=== PATIENT | male | born 1950 | race Caucasian/White ===

== ENCOUNTER 2021-06-02 08:22 | Outpatient (CLI) | payer OTHER ==
[2021-06-02 09:16] VITALS: BP 132/68
--- NOTE | 2021-06-02 09:16 | SLEEP CARE CONSULTATION ---
Information from patient questionnaire entered by Jayant Couch MA. I have reviewed and concur with the information entered by Jayant Couch MA. This document represents the service I personally performed and the decisions made by me, Madison Salter ARNP. History of Present Illness Service Date and Time: 06/02/2021 0822 Reason for Visit: New patient Chief Complaint: reports: Snoring, Observed pauses in breathing, Other (gasping noted by ) Date of Onset: long time Usual bedtime: 800- 900 pm Time it takes to fall asleep: 5 minutes Snores at night: Yes Observed to quit breathing while asleep: Yes Sleeps alone due to snoring: No Number of times waking at night: 2 Reasons for waking at night: reports: Snoring, Pain, Bathroom Toss, Turn, or Twitch while sleeping: Yes Recalls having dreams: Yes Usually gets out of bed at: 0500 - 0530 Feels refreshed in the morning: Yes Morning headache: No Sleepy or fatigued during the day: No Ever fallen asleep while driving: No Takes day naps: Yes (4 days a week, 15-20 minutes) Dreams during day naps: No Prior sleep studies: No Additional HPI information: I had the pleasure of seeing RACHNA GONGORA today regarding the possibility of him having a sleep disorder. His current complaints are snoring and observed pauses in breathing. He is going to have knee surgery and his told the surgeon about his snoring and pauses and he was sent here for evaluation. He does feel rested in the morning and has good energy through the day. He will take a nap for 15-20 minutes about 4 days a week. - Parasomnia Symptoms Ever been unable to move upon waking from sleep: No Walks in sleep: No Talks in sleep: Yes (occasionally) Ever acted out dreams in sleep: No Ever felt weak in the knees when startled or emotional: No Bothered by creepy, crawly, restless sensations in legs: No Problems with memory or concentration: No Subjective Initial [place] Sleepiness Scale score: 11 (2020) Past Medical History Past Medical History: reports: Hypertension, Arthritis (knees) Social History The patient's occupation is a RE. Patient is and lives in [place]. Have you smoked in the past 12 months: No Alcohol use: Yes Alcohol amount and frequency: 1 - 3 not much lately Caffeine use: Yes Caffeine amount and frequency: 2-3 x daily Family History Family history of sleep disordered breathing: No Allergies and Home Medications Known drug allergies: No Drug allergies reviewed: Yes (NKDA) Home medication list reviewed: Yes Allergy and home medication list: Amlodipine Besylate 5 mg daily Tamsulosin HCi 0.4 mg daily Losartan Potassium-HCTZ 100-25 mg daily Atorvastatin Calcium 20 mg daily Centrum Silver daily Review of Systems Cardiovascular: reports: high blood pressure Gastrointestinal: denies: heartburn Neurological: denies: headaches Psychiatric: denies: anxiety, depression Ear/Nose/Throat: reports: tonsillectomy, wisdom teeth removed. denies: injury to nose Endocrine: denies: thyroid disease Musculoskeletal: reports: joint pain, other (bad knees) Immunologic: reports: rash. denies: allergies to food or environment Physical Exam Vital signs obtained and entered by: ROMY MAY Blood Pressure: 132/68 (right) Cuff size: wrist Heart Rate: 56 O2 Saturation: 96 (with mask) Height: 6 ft 2 in (info provied by PT) Weight: 252 lb (info provided by PT) Body Mass Index: 32.3 BMI Classification: Obese Neck circumference: 16.75 (inches) Mouth and throat: narrow oropharynx Soft palate: long Hard palate: normal Uvula: normal Uvula visualization: 50% Mallampati Class II Tongue: normal in size Tonsils: absent bilaterally Neck: normal w/o lymphadenopathy or thyromegaly Heart: regular rate and rhythm Impression and Plan 1. Suspected Obstructive Sleep Apnea-Hypopnea Syndrome, as suggested by a history of loud and irregular snoring, observed cessation of breath while asleep, and gasping or choking in sleep. Narrow oropharynx and obesity are common predisposing factors for obstructive sleep apnea-hypopnea syndrome. I recommend proceeding to polysomnography to confirm the diagnosis and to assess severity. If the patient has significant sleep disordered breathing, a manual CPAP titration study will also be performed to find the optimal treatment pressure. I informed the patient of what the sleep studies involve and after some discussion, obtained agreement to proceed. The pathophysiology of obstructive sleep apnea-hypopnea syndrome was discussed with the patient and health risks of cardiovascular and cerebrovascular disease if not treated. AASM brochure for obstructive sleep apnea-hypopnea syndrome given and reviewed. Risks of drowsy driving discussed in detail and patient advised to avoid long distance driving and to hook puller at the first sign of drowsiness. Patient agreed to plan. * Schedule polysomnography +- manual CPAP titration study and return in 1-2 weeks after the study to discuss result and initiate therapy. * Avoid long distance driving or driving when feeling sleepy. * Avoid alcohol, sedative and muscle relaxant around bedtime. * Attempt to lose weight. * Review instructions provided by trained office staff on how to prepare for the sleep study. * Return for follow-up after sleep study completed. Counseling Topics: Weight loss health impact Visit Type: In Office Time Spent with Patient (minutes): 32 Provider Statement: I spent 100% of the Face to Face Visit with the patient with greater than 50% spent counseling the patient and coordination of care.
== END 2021-06-02 08:23 | disposition home or self-care (01) ==
LOC: SC 08:22
PROVIDERS: ATTEND Nurse Practitioner Family
DX: R06.83 Snoring (principal); R06.81 Apnea, not elsewhere classified; G47.8 Other sleep disorders; E66.9 Obesity, unspecified; Z68.32 Body mass index [BMI] 32.0-32.9, adult
CPT/HCPCS: 99203; 99212

== ENCOUNTER 2021-06-26 12:30 | Outpatient (CLI) | payer OTHER | END 2021-06-26 12:31 | disposition home or self-care (01) | LOC: SC 12:30 | PROVIDERS: ATTEND Nurse Practitioner Family | DX: G47.33 Obstructive sleep apnea (adult) (pediatric) (principal); R09.02 Hypoxemia; E66.9 Obesity, unspecified; Z68.32 Body mass index [BMI] 32.0-32.9, adult | CPT/HCPCS: 95806 ==

== ENCOUNTER 2021-07-04 15:23 | Outpatient (CLI) | payer OTHER ==
--- NOTE | 2021-07-04 16:09 | SLEEP CARE CONSULTATION ---
Information from patient questionnaire entered by Jayant Couch MA. I have reviewed and concur with the information entered by Jayant Couch MA. This document represents the service I personally performed and the decisions made by , Madison Salter ARNP. History of Present Illness Service Date and Time: 07/04/2021 1523 Initial [place] Sleepiness Scale score: 11 (2020) Current [place] Sleepiness Scale score: 5 (2021) Additional HPI information: RACHNA GONGORA returns for follow up and results of the recently performed home sleep study. I explained the pathophysiology behind obstructive sleep apnea. We then spent quite a bit of time discussing different treatment options. For mild obstructive sleep apnea, surgery and oral appliance are alternatives to nasal CPAP therapy but in moderate or severe cases, nasal CPAP is the most effective and reliable treatment. I reviewed the impact of weight changes on sleep apnea and strongly recommended losing weight. After some discussion, the patient opted to go with the nasal CPAP therapy. Nasal autoCPAP set at 4-15 cmH20 will be ordered with rationale explained. A manual titration study will be ordered if unable to find optimal pressure with office adjustments. I explained how CPAP machine works and what to expect when using the machine. Using CPAP every night in order to get used to it was emphasized. Patient advised to put CPAP mask on before getting into bed so as not to fall asleep without CPAP. To assist acclimation to CPAP use, it could also be used for a short time during day while reading or watching TV. The patient was instructed to call the CPAP supplier to discuss any mechanical problem that may occur. If the mask given is uncomfortable or is difficult to keep on through the night even with adjustment, contact the CPAP supplier as many will replace with another mask style if notified before 30 days. If snoring or perceives is not getting enough air or too much air from the machine, notify this office. AASM patient education PAP tips reviewed and given to patient. Patient was cautioned about risks of drowsy driving until sleepiness symptoms resolve. Sleep Study - Results Prior sleep studies: No Polysomnography/Home Sleep Study results: Physician Impression: The quality of the study is fair due to partial loss of airflow signal.. The natasha gth of the study is not optimal (< 240 minutes). Please also see the tabulated and graphic data. 1. Obstructive Sleep Apnea-Hypopnea (ICD-10 G47.33), mild, with an AHI of 14.2/hr and jayce SaO2 of 88%. During the study, the patient had 11 apneas (11 obstructive, 0 central, 0 mixed) and 16 hypopneas. The longest episode lasted 118.5 seconds. The respiratory events occurred more frequently during supine sleep (supine AHI was 77.4 and non-supine, 10.55). 2. Hypoxemia (ICD-10 R09.02), minimal, with the lowest oxygen saturation of 88 % and 0.6 minutes with SaO2 under 90%. Baseline oxygen saturation was normal (Average oxygen saturation was 93%). Allergies and Home Medications Known drug allergies: No Drug allergies reviewed: Yes Home medication list reviewed: Yes (no changes) Review of Systems Review of systems same as previous: Yes (no changes) Physical Exam Vital signs obtained and entered by: ROMY MAY Blood Pressure: 133/88 (LEFT) Cuff size: wrist Heart Rate: 83 O2 Saturation: 97 (WITH N95 MASK) Height: 6 ft 2 in (info provied by PT) Weight: 248 lb (WITH CLOTHES) Body Mass Index: 31.8 BMI Classification: Obese Impression and Plan 1. Obstructive Sleep Apnea-Hypopnea Syndrome, mild, with lowest oxygen saturation of 88%. Obviously this is the cause of the patients symptoms of unrefreshed sleep, and excessive daytime sleepiness. Positive pressure therapy could benefit hypertension. As mentioned above, the patient will be started on nasal autoCPAP therapy with pressure set at 4-15 cmH2O. A manual titration study will be completed if unable to find optimal treatment pressure with office adjustments. Compliance guidelines also reviewed. A copy of compliance guidelines will be given for reference at check out. Because the apnea is more severe supine, I instructed to avoid sleeping supine using pillow positioning until able to start CPAP use. * Nasal auto CPAP therapy, pressure at 4-15 cm H2O. * Attempt to lose weight. * Avoid alcohol consumption near bedtime. * Avoid supine sleep until using CPAP. * The patient is again cautioned about driving until sleepiness completely resolves. * Return one month after CPAP obtained. I will assess response to therapy and compliance at that time. Counseling Topics: Weight loss health impact Visit Type: In Office Time Spent with Patient (minutes): 20 Provider Statement: I spent 100% of the Face to Face Visit with the patient with greater than 50% spent counseling the patient and coordination of care.
[2021-07-04 16:18] VITALS: BP 133/88
== END 2021-07-04 15:24 | disposition home or self-care (01) ==
LOC: SC 15:23
PROVIDERS: ATTEND Nurse Practitioner Family
DX: G47.33 Obstructive sleep apnea (adult) (pediatric) (principal); R09.02 Hypoxemia; E66.9 Obesity, unspecified; Z68.31 Body mass index [BMI] 31.0-31.9, adult
CPT/HCPCS: 99212; 99213

== ENCOUNTER 2021-08-22 08:32 | Outpatient (CLI) | payer OTHER ==
[2021-08-22 09:17] VITALS: BP 158/90
--- NOTE | 2021-08-22 09:17 | SLEEP CARE CONSULTATION ---
Information from patient questionnaire entered by Jayant Couch MA. I have reviewed and concur with the information entered by Jayant Couch MA. This document represents the service I personally performed and the decisions made by , Madison Salter ARNP. History of Present Illness Service Date and Time: 08/22/2021 0832 Previous diagnosis: Mild, Obstructive Sleep Apnea-Hypopnea Syndrome AHI: 14.2 (in 06/2021) Reason for follow up: first compliance (SET UP DATE 07/19, RESMED, ) Equipment type: CPAP Equipment obtained from: Other ([facility]; got initial supplies) Mask style: Full face Backup mask available: No (will keep old mask when replaced) Last cushion change: 1 week Year and Where: 07/15 [facility] Type of Sleep Study: Home sleep study HPI additional information: RACHNA GONGORA was diagnosed to have mild, AHI 14.2, obstructive sleep apnea- hypopnea syndrome and returned today for CPAP therapy first compliance follow- up. Sleep Study - Results Prior sleep studies: No CPAP Compliance Data - Data Reviewed with Patient Average duration of nightly device use: 8 HOURS 1 MINUTE Compliance rate %: 90 Current pressure setting (cmH2O): 4-15 (median 7.7, avg 10.3, max 11.4) Average residual AHI: 2.2 Central apnea: .4 Obstructive apnea: .7 Average large leak: 25.8 Subjective Missed days of use due to: reports: travel Patient concerns: reports: condensation in mask/hose. denies: aerophagia, mask discomfort, air blowing in eyes, mask leak noise, nasal congestion, dry mouth, nose, throat, epistaxis, other Observed to snore while using device: No Current pressure setting perceived as: comfortable On therapy, patient: reports: other (He states not feeling it yet but tells him the bags under his eyes are shrinking). denies: drowsiness while driving Initial [place] Sleepiness Scale score: 11 (2020) Current [place] Sleepiness Scale score: 6 (2021) Allergies and Home Medications Known drug allergies: Yes Drug allergies reviewed: Yes Home medication list reviewed: Yes (no changes) Review of Systems Review of systems same as previous: Yes (no changes) Physical Exam Vital signs obtained and entered by: ROMY MAY Blood Pressure: 158/90 (LEFT, PULSE 77, RESP 18,) Heart Rate: 76 O2 Saturation: 96 (N95) Height: 6 ft 2 in (info provied by PT) Weight: 264 lb (WITH CLOTHES AND SHOES) Body Mass Index: 33.9 BMI Classification: Obese Impression and Plan 1. Obstructive Sleep Apnea-Hypopnea Syndrome, mild, with good treatment compliance and good apnea control. Patient does not feel much difference and still likes to take his nap in the afternoon. But his [place] has decreased from 05/17 to 12/15. The patients pressure will be changed to autoCPAP 9-11 cmH20 to reflect pressure being used. Patient advised to contact me if pressure change is uncomfortable so that it can be adjusted. Goals for apnea control discussed. Patient states that he feels like it is hard to breathe out while he is getting into bed with the mask on. His EPR is set at 3 which should help with resistance from exhaling. I advised him to keep mask looser on face until he is laying down and then adjust to fit his face well. Patient voiced understanding and agreement. Patient's apnea severity and rationale for treatment to reduce apnea, improve sleep quality and reduce cardiovascular and cerebrovascular events was reviewed. I also reviewed the benefit of consistent device use of CPAP for hypertension. Patient encouraged to try to lose weight. * Change auto CPAP pressure to 9-11 cmH2O * Notify me if snoring with mask or feeling that the pressure is too much or too little * Attempt to lose weight * Call this office if any problems using CPAP * Return for follow up in 1-2 months, or sooner if concerns arise Counseling Topics: Spare mask, Weight loss health impact Visit Type: In Office Time Spent with Patient (minutes): 24 Provider Statement: I spent 100% of the Face to Face Visit with the patient with greater than 50% spent counseling the patient and coordination of care.
== END 2021-08-22 08:33 | disposition home or self-care (01) ==
LOC: SC 08:32
PROVIDERS: ATTEND Nurse Practitioner Family
DX: G47.33 Obstructive sleep apnea (adult) (pediatric) (principal); E66.9 Obesity, unspecified; Z68.33 Body mass index [BMI] 33.0-33.9, adult
CPT/HCPCS: 99212; 99213